=== PATIENT | male | born 1980 | race Caucasian/White ===

== ENCOUNTER 2017-04-29 11:09 | Emergency (ER) | payer OTHER ==
[~2017-04-29] VITALS: Ht 175.3 cm; Wt 79.4 kg
[~2017-04-29 11:09] MED LIST: OMEPRAZOLE20 MG PO
[2017-04-29] MEDS ORDERED: VENTOLIN HFA18 GM INH (13:40)
== END 2017-04-29 13:53 | disposition home or self-care (01) ==
LOC: ED 11:09
DX: R10.11 Right upper quadrant pain (principal); J98.01 Acute bronchospasm; F17.200 Nicotine dependence, unspecified, uncomplicated; Z79.899 Other long term (current) drug therapy
CPT/HCPCS: 76705; 80053; 83690; 85025; 99284